=== PATIENT | male | born 1955 | race Caucasian/White ===

== ENCOUNTER → 2017-08-26 | Outpatient (CLI) | payer OTHER ==
--- NOTE | 2017-08-26 14:18 | Diagnostic Imaging Report ---
PROCEDURE:US RETROPERITONEAL ( KIDNEY ). COMPARISON:03/14/2017. INDICATIONS:CYSTS, CHRONIC KID DISEASE TECHNIQUE: White-scale and color sonographic images of the bilateral kidneys and bladder where obtained in transverse and longitudinal planes. FINDINGS: RIGHT KIDNEY: 12.6 cm in length, cortical thickness 1.5 cm. Cysts: Exophytic upper pole cyst measures 7.6 x 7.2 x 5.1 cm (Previously 7.6 x 6.8 x 7.3 cm). Exophytic cyst in the lower pole measures 4.8 x 4.5 x 4.9 cm (previously 5.1 x 4.6 x 4.8 cm). Parenchymal cyst in the interpolar region measures 2.6 x 2.6 x 1.6 cm (previously 2.5 x 2.6 x 2.5 cm) Solid masses: None Stones: None Hydronephrosis: None Echogenicity: Normal renal cortical echogenicity. LEFT KIDNEY: 11.9 cm in length, cortical thickness 1.4 cm. Cysts: Interpolar cyst measures 4.2 x 3.2 x 4.0 cm (Previously 4.9 x 3.3 x 4.5 cm). Second interpolar cyst measures 4 x 3.9 x 3.5 cm (previously 3.8 x 3.4 x 4.6 cm). Upper pole cyst measures 2.8 x 3.1 x 4 cm. (previously 3.2 x 3 x 3.3 cm) Solid masses: None Stones: None Hydronephrosis: None Echogenicity: Normal renal cortical echogenicity. Bladder: Unremarkable. Right and left ureteral jets are identified. No significant post void residual. Prostate: 2.7 x 2.5 x 2.5 cm, estimated volume 8.7 cc CONCLUSION: Bilateral simple renal cysts are largely stable compared to 03/14/2017. Dictated by: Otto Yancey M.D. on 08/26/2017 at 14:21 Electronically approved by: Otto Yancey M.D. on 08/26/2017 at 14:21
--- NOTE | 2017-08-26 14:18 | Diagnostic Imaging Report ---
PROCEDURE:URINARY BLADDER ULTRASOUND COMPARISON:None. INDICATIONS: CHRONIC KID DISEASE CONCLUSION: Please refer to "US RETROPERITONEAL" performed at the same date and time for full dictated report. Dictated by: Otto Yancey M.D. on 08/26/2017 at 14:21 Electronically approved by: Otto Yancey M.D. on 08/26/2017 at 14:21
== END ==
LOC: US 10:59
PROVIDERS: ATTEND Internal Medicine Nephrology
DX: N18.3 Chronic kidney disease, stage 3 (moderate) (principal)
CPT/HCPCS: 76770; 76857